=== PATIENT | female | born 1995 | race Caucasian/White ===

== ENCOUNTER 2022-03-28 16:28 | Emergency (ER) | payer OTHER ==
[2022-03-28 17:03] VITALS: BP 133/67; PULSE 98; TEMP 98.3; BMI 43.8
[2022-03-28] MEDS ORDERED: KETOROLAC TROMETHAMINE 30 MG/1 ML VIAL IM ONE (17:52)
[2022-03-28] MEDS ORDERED: KETOROLAC TROMETHAMINE 30 MG/1 ML VIAL ONE (17:55)
== END 2022-03-28 20:35 | disposition home or self-care (01) ==
LOC: JERFT 16:28
PROC: 3E023GC Introduction of Other Therapeutic Substance into Muscle, Percutaneous Approach (ICD-10-PCS; principal; 2022-03-28)
DX: M54.2 Cervicalgia (principal); M54.50 Low back pain, unspecified; V49.50XA Passenger injured in collision with unspecified motor vehicles in traffic accident, initial encounter
CPT/HCPCS: 71046-TC-FY; 72040-TC; 72100-TC-FY; 99284-25